=== PATIENT | male | born 1975 | race Caucasian/White ===

== ENCOUNTER 2019-06-04 16:20 | Emergency (ER) | payer OTHER ==
[~2019-06-04] VITALS: Ht 177.8 cm; Wt 98.4 kg
[2019-06-04 17:08] LABS: ABSOLUTE BASOPHILS 0.1 thou/uL (0.0-0.2); ABSOLUTE EOSINOPHILS 0.1 thou/uL (0.0-0.7); ABSOLUTE LYMPHOCYTES 1.6 thou/uL (0.8-5.3); ABSOLUTE MONOCYTES 0.8 thou/uL (0.0-1.2); ABSOLUTE NEUTROPHILS 6.5 thou/uL (1.6-8.1); BASOPHILS 0.7 %; EOSINOPHILS 1.4 %; HEMATOCRIT 56.9 % (42.0-52.0); HEMOGLOBIN 19.3 gm/dL (14.0-18.0); LYMPHOCYTES 17.3 %; MCH 31.2 pg (26.0-34.0); MCHC 33.9 g/dL (28.0-37.0); MCV 92.1 fL (80.0-100.0); MONOCYTES 8.8 %; MPV 9.6 fl. (7.2-11.1); NUCLEATED RBCS 0 /100WBC; PLATELET COUNT* 184 thou/uL (150-400); POLYS 71.8 %; RBC 6.18 mil/uL (4.50-6.00); RDW-CV 15.8 % (10.5-14.5)
[2019-06-04 17:12] LABS: CREATININE 1.2 mg/dL (0.6-1.3); POTASSIUM 4.5 mmol/L (3.5-5.1)
[2019-06-04 17:16] LABS: ALBUMIN 3.9 g/dL (3.4-5.0); TOTAL BILIRUBIN 0.7 mg/dL (<0.1-1.0); TOTAL PROTEIN 7.5 g/dL (6.4-8.2)
[2019-06-04 17:22] LABS: APTT 25.4 Seconds (25.0-31.3); PROTIME 10.6 Seconds (9.20-11.50)
[2019-06-04] MEDS ORDERED: HYDROCHLOROTHIA25 M2 PO (18:10)
[2019-06-04 18:39] VITALS: BP 155/94
--- NOTE | 2019-06-06 15:02 | EKG ---
[place] [address] ELECTROCARDIOGRAM REPORT Name: GOPI HOWARD Room: [facility] ([place], [place])#: [id number] Admission: 06/04/19 Attend Phys: Discharge: 06/04/19 Date of : 77 Date of Service: 06/04/19 1724 Report #: [id number] THIS REPORT FOR: //name// [facility] ED Test Date: 2019-06-04 Test Time: 17:24:17 Pat Name: GPOI HOWARD Department: Room: Gender: [employer]avor[employer] Compounder: MA : 1975 Requested By: Belinda Jensen Order Number: [id number] MD: Carl Rodriguez Measurements Intervals [place] Rate: 57 P: 50 WV: 159 QRS: 29 QRSD: 98 T: -6 QT: 391 QTc: 381 Interpretive Statements Sinus rhythm Probable left atrial enlargement Borderline T abnormalities, inferior leads No previous ECG available for comparison Electronically Signed On 06-06-2019 15:01:55 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
== END 2019-06-04 18:40 | disposition home or self-care (01) ==
LOC: M.ERS 16:20
PROVIDERS: Personal Emergency Response Attendant
DX: R03.0 Elevated blood-pressure reading, without diagnosis of hypertension (principal); R71.8 Other abnormality of red blood cells; Z92.241 Personal history of systemic steroid therapy

== ENCOUNTER → 2020-04-03 | Outpatient (CLI) | payer OTHER ==
[~2020-04-03] MED LIST: HYDROCHLOROTHIA25 M2 PO
== END ==
LOC: M.ULTRA 07:53
PROVIDERS: ATTEND Family Medicine
DX: K76.0 Fatty (change of) liver, not elsewhere classified (principal); K76.89 Other specified diseases of liver; D18.00 Hemangioma unspecified site

== ENCOUNTER → 2020-08-21 | Outpatient (CLI) | payer OTHER ==
[~2020-08-21] MED LIST changes: +ASA81BEC PO; +CIALIS20 MG PO; +CRESTOR10 MG PO; +ZYRTEC-D TABLE1 EAC1 PO
--- NOTE | 2020-08-21 16:49 | EXE ---
[place] [address] STRESS ECHOCARDIOGRAM Name: GOPI HOWARD [id number] Admission: 08/21/20 Attend Phys: Parker Claros, Discharge: Date of : 77 Date of Service: 08/21/20 1649 Report #: [id number] THIS REPORT FOR: cc: Bryson Abbott Vincent R. DO Liston, Michael J. MD [facility] ~ APPROVED REPORT Study performed: 08/21/2020 15:02:54 Exam: Stress Echocardiogram Indication: Dyspnea Patient Location: Out-Patient Stress Nurse: Zaria Timmons RN Supervising Physician: Gopi Arciniega MD Ht: 5 ft 9 in HR: 62 bpm BP: 137/87 mmHg Medical History Cardiac Risk Factors: Hyperlipidemia, HTN, Tobacco History (Former), FHX of CAD Procedure The patient underwent an Exercise Stress Test using the Jun Protocol. Blood pressure, heart rate, and EKG were monitored. An Echocardiogram was performed by mechanical design technician in four stages in quad fashion. At peak stress, four selected images were obtained and placed side by side with resting images for comparison. Stress Test Details Stress Test: Exercise stress testing was performed using a Jun protocol. HR Resting HR: 62 bpm Max Heart Rate (APMHR): 176 bpm Max HR Achieved: 158 bpm Target HR (85% APMHR): 149 bpm % of APMHR: 89 Recovery HR: 94 bpm HR response to stress: Normal HR response to stress BP Resting BP: 137/87 mmHg Max BP: 217/68 mmHg Recovery BP: 136/81 [place] [address] STRESS ECHOCARDIOGRAM Name: GOPI HOWARD Room: [facility]#: [id number] Admission: 08/21/20 Attend Phys: Parker Claros, Discharge: Date of : 77 Date of Service: 08/21/20 1649 Report #: [id number] BP response to stress: Normal blood pressure response to stress. ECG Resting ECG: Sinus Rhythm Stress ECG: Sinus Tachycardia ST Change: None Arrhythmia: None Recovery ECG: Sinus Rhythm Recovery ST Change: None Recovery Arrhythmia: None Clinical Reason for Termination: Completed protocol Exercise duration: 11 min 33 sec Highest Stage Achieved: Stage 4: 4.2 mph at 16% grade. Exercise capacity: 13.48 METs The patient tolerated standard Jun protocol exercise without significant difficulty. The patient exhibited good exercise tolerance. Baseline twelve-lead EKG shows sinus rhythm without significant ST segment or T wave abnormality. EKGs obtained during and post exercise shows sinus rhythm and sinus tachycardia with no significant ST segment or T wave changes Stress ECG Conclusion Baseline twelve-lead EKG shows sinus rhythm without significant ST segment or T wave abnormality. EKGs obtained during and post exercise shows sinus rhythm and sinus tachycardia with no significant ST segment or T wave changes when compared to baseline. There were no stress-induced arrhythmias. Pre-Stress Echo The resting Echocardiogram showed normal left ventricular contractility with an estimated Ejection Fraction of about 60-65%. The resting echocardiogram demonstrated normal wall motion in all wall segments. Post-Stress Echo The stress Echocardiogram showed normal left ventricular contractility with an estimated Ejection Fraction of about >70%. Compared to rest, there were no stress-induced wall motion abnormalities. Conclusion Clinical Response: Non-ischemic Exercise Capacity: Average Stress ECG Response: [place] [address] STRESS ECHOCARDIOGRAM Name: GOPI HOWARD Room: [facility]#: [id number] Admission: 08/21/20 Attend Phys: Parker Claros, Discharge: Date of : 77 Date of Service: 08/21/201648 Report #: [id number] Stress Echo Images: Non-ischemic Other Information Study Quality: Good <ELECTRONICALLY SIGNED> By: Parker Claros MD, FAC 08/21/201648 48 48 Parker Claros MD, FACC /INF
== END ==
LOC: M.CRD 13:20
PROVIDERS: ATTEND Internal Medicine Cardiovascular Disease
DX: I10 Essential (primary) hypertension (principal); E78.2 Mixed hyperlipidemia

== ENCOUNTER 2021-02-04 11:54 | Emergency (ER) | payer OTHER ==
[~2021-02-04] VITALS: Ht 175.3 cm; Wt 97.5 kg
[2021-02-04 12:03] VITALS: BP 134/65
[2021-02-04] MEDS ORDERED: PREDNISONE 10 M10 M1 PO (12:28)
[2021-02-04] MEDS ORDERED: DIPHENHIST50 MG PO (12:28)
== END 2021-02-04 12:35 | disposition home or self-care (01) ==
LOC: M.ERS 11:54
DX: L25.9 Unspecified contact dermatitis, unspecified cause (principal); Z98.890 Other specified postprocedural states; Z79.899 Other long term (current) drug therapy; Z79.82 Long term (current) use of aspirin